=== PATIENT | male | born 1980 | race Caucasian/White ===

== ENCOUNTER → 2016-12-19 | Outpatient (CLI) | payer BC ==
--- NOTE | 2016-12-19 16:22 | Diagnostic Imaging Report ---
PROCEDURE: MRI left joint lower extremity without contrast. TECHNIQUE: Multiplanar, multisequence non contrast-enhanced MRI of the left lower extremity was accomplished. INDICATION: Medial left knee pain. FINDINGS: There is no significant effusion. A trace suprapatellar effusion or possibly physiologic fluid, however, is seen. There is a minimal amount of fluid at the popliteal fossa compatible with a tiny Pinedo's cyst. There is bone marrow edema seen along the anterior outer aspect of the medial femoral condyle with no associated displaced or microscopic fracture seen, which may relate to a contusion. Otherwise, the bone marrow appears grossly unremarkable. The extensor mechanism appears intact. The PCL and the ACL appear intact. The medial and the lateral menisci appear intact. The MCL and the lateral collateral ligamentous complex appear intact. The articular cartilage appears preserved in three compartments. There is a normal muscle bulk and signal. IMPRESSION: There is a bone marrow contusion along the anterior aspect of the right femoral condyle with no associated microscopic fracture. No significant abnormality is seen otherwise. Dictated by: Dictated on workstation # [id number]
== END ==
LOC: RAD 14:52
PROVIDERS: ATTEND Orthopaedic Surgery
DX: T14.8 Other injury of unspecified body region (principal); X58.XXXA Exposure to other specified factors, initial encounter; Y99.8 Other external cause status
CPT/HCPCS: 73721

== ENCOUNTER → 2019-05-18 | Outpatient (CLI) | payer BC ==
--- NOTE | 2019-05-18 17:04 | Diagnostic Imaging Report ---
INDICATION: Urinary frequency for one week. Patient has history of kidney stones. TIME OF EXAM: 2:43 p.m. FINDINGS: The bowel gas pattern is unremarkable. No definite radiopaque urinary tract calculi are seen. IMPRESSION: No acute feature detected. Dictated by: Dictated on workstation # [id number]
== END ==
LOC: RAD 13:53
PROVIDERS: ATTEND Nurse Practitioner Family
DX: R10.31 Right lower quadrant pain (principal); R33.9 Retention of urine, unspecified; Z87.442 Personal history of urinary calculi
CPT/HCPCS: 74018

== ENCOUNTER → 2019-05-20 | Outpatient (CLI) | payer BC ==
--- NOTE | 2019-05-20 12:43 | Diagnostic Imaging Report ---
PROCEDURE: CT abdomen and pelvis without contrast. TECHNIQUE: Multiple contiguous axial images were obtained through the abdomen and pelvis without the use of intravenous contrast. Auto Exposure Controls were utilized during the CT exam to meet ALARA standards for radiation dose reduction. INDICATION: Right lower quadrant pain and urinary retention. COMPARISON: No prior studies are available comparison. FINDINGS: The lung bases are clear. The liver and gallbladder are unremarkable. No biliary ductal dilatation is seen. The pancreas and spleen are unremarkable. No adrenal mass is detected. No renal calculi or hydronephrosis is detected. No ureteral or bladder calculi are seen. Aorta is non-aneurysmal. The small and large bowel loops are normal caliber. Appendix appears unremarkable. No inflammatory changes in the abdomen or pelvis are seen. No free fluid. Prostate is unremarkable. Bony structures are nonacute. IMPRESSION: Unremarkable noncontrast CT of the abdomen and pelvis. There is no CT evidence of urinary tract calculi or obstruction. There is no CT evidence of acute appendicitis. Dictated by: Dictated on workstation # [id number]
== END ==
LOC: RAD 12:18
PROVIDERS: ATTEND Nurse Practitioner Family
DX: R10.31 Right lower quadrant pain (principal); R33.8 Other retention of urine
CPT/HCPCS: 74176